=== PATIENT | female | born 1960 | race Caucasian/White ===

== ENCOUNTER 2017-07-22 19:55 | Emergency (ER) | payer MEDICARE, OTHER ==
[~2017-07-22] VITALS: Ht 160 cm; Wt 72.0 kg
[2017-07-22 19:56] VITALS: BP 127/62; PULSE 84; RESP 15; TEMP 98.1; O2SAT 98
--- NOTE | 2017-07-22 20:01 | PD ---
Physical Exam Date Seen by Provider: Jul 22, 2017 Time Seen by Provider: 20:00 Narrative 57 yo female here for evaluation of right ankle pain after fall today. Patient states her foot was asleep when she put weight on it and she twisted it. Pain to right ankle. No other medical issues or injuries. No head injury. Pain is 7/ 10. Vitals stable in triage. Awaiting bed placement. Data Data Last Documented VS Vital Signs Date Time Temp Pulse Resp B/P (MAP) Pulse Ox O2 Delivery O2 Flow Rate FiO2 07/22/17 19:56 98.1 84 15 127/62 (83) 98 Room Air Orders Orders Ankle, Complete ([id number]) (07/22/17 ) [facility] Medical Record Reviewed: Yes Supervised Visit with KARLY: Navid Reich Jul 22, 2017 20:01
--- NOTE | 2017-07-22 20:18 | RADRPT ---
EXAM DATE/TIME: 07/22/2017 20:10 [place] COMPARISON: No previous studies available for comparison. INDICATIONS : Right ankle pain. Patient fell and twisted ankle. MEDICAL HISTORY : None. SURGICAL HISTORY : None. ENCOUNTER: Initial ACUITY: 1 day PAIN SCORE: 10/10 LOCATION: Right ankle. FINDINGS: Three views of the right ankle demonstrate no fracture or dislocation. Ankle mortise is intact. Extrusion Press Supervisor alization is within normal limits and there is no significant arthropathy. No soft tissue abnormality or radiopaque foreign body is identified. CONCLUSION: No acute abnormality is identified. Mauro Pal MD on July 22, 2017 at 20:15 Board Certified Radiologist. This report was verified electronically.
[2017-07-22] MEDS ORDERED: LEVO88TA2 PO (20:59)
[2017-07-22] MEDS ORDERED: POTA-163 PO (20:59)
[2017-07-22] MEDS ORDERED: KETOROLAC TROMETHAMINE 60 MG/2 ML (IM) VIAL IM ONE (21:00)
[2017-07-22] MEDS ORDERED: IBUP-232 PO (21:08)
--- NOTE | 2017-07-22 21:08 | PD ---
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 Patient states that she was standing there and her leg out. She rolled over her ankle. She felt a pop. May be broken. It is moderately painful with a 6 out of 10, exacerbated with movement or ambulation. She has no other symptoms to report at this time. PFSH Past Medical History Cerebrovascular Accident: Yes Thyroid Disease: Yes Tetanus Vaccination: < 5 Years Influenza Vaccination: No Past Surgical History Appendectomy: Yes Tonsillectomy: Yes Social History Alcohol Use: No Tobacco Use: No Substance Use: No Allergies-Medications (Allergen,Severity, Reaction): Coded Allergies: No Known Allergies (Verified Allergy, Unknown, 07/22/17) Reported Meds & Prescriptions Reported Meds & Active Scripts Active Ibuprofen 600 Mg Tab 600 Mg PO Q8HR PRN Reported Potassium Chloride ER (Potassium Chloride) 20 Meq Tab 20 Meq PO DAILY Levothyroxine (Levothyroxine Sodium) 88 Mcg Tab 88 Mcg PO DAILY Review of Systems Except as stated in HPI: all other systems reviewed are Neg Physical Exam Narrative GENERAL: Well-nourished, well-developed female patient, in no acute distress SKIN: Focused skin assessment warm/dry. HEAD: Normocephalic. EYES: No scleral icterus. No injection or drainage. NECK: Supple, trachea midline. No JVD or lymphadenopathy. CARDIOVASCULAR: Regular rate and rhythm without murmurs, gallops, or rubs. RESPIRATORY: Breath sounds equal bilaterally. No accessory muscle use. EXTREMITY: The right ankle is swollen and tender over the lateral aspect but the skin is intact and there is no ligamentous instability. There is no deformity. The foot and toes are warm and well-perfused. Sensation to pain and light touch is intact. Data Data Last Documented VS Vital Signs Date Time Temp Pulse Resp B/P (MAP) Pulse Ox O2 Delivery O2 Flow Rate FiO2 07/22/17 21:14 07/22/17 19:56 98.1 84 15 98 Room Air Orders Orders Ankle, Complete ([id number]) (07/22/17 ) Ketorolac Inj (Toradol Inj) (07/22/17 21:00) Enrique Bandage (07/22/17 20:58) Splint Or Brace Apply/Monitor (07/22/17 20:58) Crutches (07/22/17 20:58) Brace Ankle Stirrup (07/22/17 ) MDM Medical Decision Making Medical Screen Exam Complete: Yes Emergency Medical Condition: Yes Medical Record Reviewed: Yes Differential Diagnosis Sprain versus fracture versus contusion versus dislocation Narrative Course 57 year-old female presents to the emergency department for evaluation right ankle pain. X-ray imaging confirms no acute bony abnormality. Patient is placed in a brace, provided crutches, counseling care. She agrees to return immediately with any acute worsening symptoms. Diagnosis Primary Impression: Right ankle sprain Qualified Codes: S93.401A - Sprain of unspecified ligament of right ankle, initial encounter Referrals: Primary Care Physician Patient Instructions: Ankle Sprain Exercises (GEN), General Instructions Additional Instructions: Ice and elevate to reduce pain and swelling Enrique and brace for support and comfort Follow up with your primary care provider Return immediately with any acute worsening of symptoms Med/Other Pt SpecificInfo: Prescription(s) given Scripts Ibuprofen (Ibuprofen) 600 Mg Tab 600 MG PO Q8HR Y for PAIN, #30 TAB 0 Refills Prov: Priyanka Mike 07/22/17 Disposition: 01 DISCHARGE HOME Condition: Stable Priyanka Mike Jul 22, 2017 21:08
== END 2017-07-22 21:18 | disposition home or self-care (01) ==
LOC: NEPK 19:55
DX: S93.401A Sprain of unspecified ligament of right ankle, initial encounter (principal); X50.9XXA Other and unspecified overexertion or strenuous movements or postures, initial encounter
CPT/HCPCS: 73610; 96372; 99284; E0113; J1885; L1906